=== PATIENT | male | born 1945 | race Caucasian/White ===

== ENCOUNTER 2022-05-22 08:07 | Outpatient (CLI) | payer MEDICARE | END 2022-05-22 08:08 | disposition home or self-care (01) | LOC: CSHWCC 08:07 | PROVIDERS: ATTEND Nurse Practitioner Family | DX: S81.801D Unspecified open wound, right lower leg, subsequent encounter (principal); R60.0 Localized edema | CPT/HCPCS: 29581; 97139; 97597; G0463; 99203 ==

== ENCOUNTER 2022-05-29 08:33 | Outpatient (CLI) | payer MEDICARE | END 2022-05-29 08:34 | disposition home or self-care (01) | LOC: CSHWCC 08:33 | PROVIDERS: ATTEND Nurse Practitioner Family | DX: S81.801D Unspecified open wound, right lower leg, subsequent encounter (principal); R60.0 Localized edema | CPT/HCPCS: 97139; G0463; 99213 ==

== ENCOUNTER 2022-06-10 16:12 | Outpatient (CLI) | payer MEDICARE | END 2022-06-10 16:13 | disposition home or self-care (01) | LOC: CSHWCC 16:12 | PROVIDERS: ATTEND Preventive Medicine Undersea and Hyperbaric Medicine | DX: S81.801D Unspecified open wound, right lower leg, subsequent encounter (principal); R60.0 Localized edema | CPT/HCPCS: 29581 ==

== ENCOUNTER 2022-06-20 08:06 | Outpatient (CLI) | payer MEDICARE | END 2022-06-20 08:07 | disposition home or self-care (01) | LOC: CSHWCC 08:06 | PROVIDERS: ATTEND Preventive Medicine Undersea and Hyperbaric Medicine | DX: R60.0 Localized edema (principal) | CPT/HCPCS: 97139; G0463; 99213 ==

== ENCOUNTER 2022-07-01 08:46 | Outpatient (CLI) | payer MEDICARE | END 2022-07-01 08:47 | disposition home or self-care (01) | LOC: CSHWCC 08:46 | PROVIDERS: ATTEND Preventive Medicine Undersea and Hyperbaric Medicine | DX: R60.0 Localized edema (principal) | CPT/HCPCS: 99212; G0463 ==

== ENCOUNTER 2022-08-07 08:47 | Outpatient (CLI) | payer MEDICARE | END 2022-08-07 08:48 | disposition home or self-care (01) | LOC: CSHWCC 08:47 | PROVIDERS: ATTEND Nurse Practitioner Family | DX: R60.0 Localized edema (principal) ==